=== PATIENT | male | born 1995 | race Caucasian/White ===

== ENCOUNTER 2024-01-21 14:32 | Emergency (ER) | payer MEDICAID ==
[~2024-01-21] VITALS: Ht 170.2 cm; Wt 68.0 kg
[2024-01-21 14:57] VITALS: BP 128/90; PULSE 93; RESP 20; TEMP 97.5; O2SAT 98
[2024-01-21] MEDS: LIDOCAINE MPF 1% 10 MG/ML VIAL INJ ONE (15:19)
[2024-01-21 15:33] VITALS: BP 128/90; PULSE 93; RESP 20; TEMP 97.5; O2SAT 98
[2024-01-21] MEDS ORDERED: IBUP-2213 PO (15:33)
[2024-01-21] MEDS ORDERED: AMOX1TAB8 PO (15:33)
== END 2024-01-21 15:44 | disposition home or self-care (01) ==
LOC: MED 14:32
DX: K05.219 Aggressive periodontitis, localized, unspecified severity (principal); K02.9 Dental caries, unspecified; Z79.899 Other long term (current) drug therapy
CPT/HCPCS: 41800; 99284; J2001